=== PATIENT | male | born 1950 | race Caucasian/White ===

== ENCOUNTER 2019-03-20 11:15 | Observation (INO) | payer MEDICARE ==
--- NOTE | 2019-03-20 12:54 | ED ---
Dizziness HPI - General Chief Complaint: Dizziness Stated Complaint: heart concerns Time Seen by Provider: 03/20/19 11:49 Source: patient Mode of arrival: wheelchair Limitations: no limitations - History of Present Illness Initial Comments: Patient is 68-year-old male presenting to emergency Department with a chief complaint of lightheadedness, chest pain or shortness of breath. Patient reports he initially started to develop chest palpitations approximately 10 days ago and he saw the primary care who suggested hadn't scheduled for stress test, echo and Holter monitor. Patient reports early this morning he initially began to develop chest palpitations along with a substernal chest pressure that does not radiate anywhere. Patient denies nausea vomiting or diaphoresis. Patient also reports he developed a mild episode of numbness surrounding the mouth and his fingertips which has since resolved. Patient also reports mild lightheadedness which has resolved but no dizziness. Patient also reports that he developed shortness of breath. Patient also reports dyspnea on exertion. Patient does have asthma and seasonal ALLERGIES. Patient reports that he does have borderline hypertension but no cholesterolemia. Patient has a bicuspid aor tic valve. Patient reports he only takes aspirin and facial for his elevated triglycerides. Patient is not a smoker. Patient doesn't have any family history of cardiovascular disease. Patient took 325 of aspirin prior to ED arrival. - Related Data Home Medications Medication Instructions Recorded Confirmed Aspirin 325 mg PO DAILY 03/20/19 03/20/19 Allergies Allergy/AdvReac Type Severity Reaction Status Date / Time No Known Allergies Allergy Verified 03/20/19 12:04 Review of Systems ROS Statement: Those systems with pertinent positive or pertinent negative responses have been documented in the HPI. ROS Other: All systems not noted in ROS Statement are negative. Past Medical History Past Medical History: Asthma Additional Past Medical History / Comment(s): seasonal allergies History of Any Multi-Drug Resistant Organisms: None Reported Past Surgical History: No Surgical Hx Reported Past Psychological History: No Psychological Hx Reported Smoking Status: Never smoker Past Alcohol Use History: Daily Past Drug Use History: None Reported General Exam Limitations: no limitations General appearance: alert, in no apparent distress Head exam: Present: atraumatic, normocephalic, normal inspection Eye exam: Present: normal appearance, PERRL, EOMI Pupils: Present: normal accommodation ENT exam: Present: normal exam, normal oropharynx, mucous membranes moist, TM's normal bilaterally, normal external ear exam Neck exam: Present: normal inspection, full ROM. Absent: tenderness Respiratory exam: Present: normal lung sounds bilaterally Cardiovascular Exam: Present: regular rate, normal rhythm, normal heart sounds GI/Abdominal exam: Present: soft. Absent: tenderness Extremities exam: Present: normal inspection, full ROM Back exam: Present: normal inspection, full ROM. Absent: CVA tenderness (R), CVA tenderness (L) Neurological exam: Present: alert, oriented X3, CN II-XII intact, normal gait, reflexes normal, other (Patient neurovascularly intact). Absent: altered, abnormal gait, motor sensory deficit Psychiatric exam: Present: normal affect, normal mood Skin exam: Present: warm, intact, normal color Course Vital Signs 03/20/19 11:33 Temperature 97.7 F Pulse Rate 61 Respiratory 18 Rate Blood Pressure 147/90 O2 Sat by Pulse 97 Oximetry EKG Findings - EKG Comments: EKG Findings:: Sinus bradycardia with first-degree AV block.right axis deviation. Ventricular rate 58, CA interval 364, QRS duration 88, QT/QTc 430/422 Medical Decision Making - Medical Decision Making Patient is a 68-year-old male with history of a bicuspid aortic valve is presenting to emergency Department with a chief complaint of lightheadedness, shortness of breath and chest pain. Patient reports gradual onset of substernal chest pain without radiation nausea or vomiting. Patient also developed shortness of breath with dyspnea on exertion. Patient also reports numbness and tingling in his fingers and around the mouth which has since resolved. No focal neural deficits. No blurry Vision or headaches. Patient has a heart score 5. Patient will be admitted for observation and serial troponins. Initial troponins are negative. Rest of the laboratory results are unremarkable. Physical examination is unremarkable. EKG is indicative of left axis deviation and first-degree heart block. The admitting physician is Dr. Arce. Cardiology consulted. Case discussed with Dr. Lawrence. - Lab Data Result diagrams: 03/20/19 12:40 03/20/19 12:40 Lab Results 03/20/19 03/20/19 03/20/19 Range/Units 12:40 12:40 12:40 WBC 6.2 (3.8-10.6) k/uL RBC 5.65 (4.30-5.90) m/uL Hgb 16.9 (13.0-17.5) gm/dL Hct 49.7 (39.0-53.0) % MCV 88.0 (80.0-100.0) fL MCH 29.8 (25.0-35.0) pg MCHC 33.9 (31.0-37.0) g/dL RDW 14.6 (11.5-15.5) % Plt Count 200 (150-450) k/uL Neutrophils % 66 % Lymphocytes % 21 % Monocytes % 7 % Eosinophils % 3 % Basophils % 1 % Neutrophils # 4.1 (1.3-7.7) k/uL Lymphocytes # 1.3 (1.0-4.8) k/uL Monocytes # 0.4 (0-1.0) k/uL Eosinophils # 0.2 (0-0.7) k/uL Basophils # 0.1 (0-0.2) k/uL PT 10.7 (9.0-12.0) sec INR 1.0 (<1.2) Sodium 139 (137-145) mmol/L Potassium 4.4 (3.5-5.1) mmol/L Chloride 107 (98-107) mmol/L Carbon Dioxide 22 (22-30) mmol/L Anion Gap 10 mmol/L BUN 18 (9-20) mg/dL Creatinine 1.06 (0.66-1.25) mg/dL Est GFR (CKD-EPI)AfAm 82 (>60 ml/min/1.73 sqM) Est GFR (CKD-EPI)NonAf 71 (>60 ml/min/1.73 sqM) Glucose 95 (74-99) mg/dL Calcium 9.4 (8.4-10.2) mg/dL Total Bilirubin 0.7 (0.2-1.3) mg/dL AST 29 (17-59) U/L ALT 31 (21-72) U/L Alkaline Phosphatase 85 (38-126) U/L Troponin I (0.000-0.034) ng/mL Total Protein 7.0 (6.3-8.2) g/dL Albumin 4.1 (3.5-5.0) g/dL 03/20/19 Range/Units 12:40 WBC (3.8-10.6) k/uL RBC (4.30-5.90) m/uL Hgb (13.0-17.5) gm/dL Hct (39.0-53.0) % MCV (80.0-100.0) fL MCH (25.0-35.0) pg MCHC (31.0-37.0) g/dL RDW (11.5-15.5) % Plt Count (150-450) k/uL Neutrophils % % Lymphocytes % % Monocytes % % Eosinophils % % Basophils % % Neutrophils # (1.3-7.7) k/uL Lymphocytes # (1.0-4.8) k/uL Monocytes # (0-1.0) k/uL Eosinophils # (0-0.7) k/uL Basophils # (0-0.2) k/uL PT (9.0-12.0) sec INR (<1.2) Sodium (137-145) mmol/L Potassium (3.5-5.1) mmol/L Chloride (98-107) mmol/L Carbon Dioxide (22-30) mmol/L Anion Gap mmol/L BUN (9-20) mg/dL Creatinine (0.66-1.25) mg/dL Est GFR (CKD-EPI)AfAm (>60 ml/min/1.73 sqM) Est GFR (CKD-EPI)NonAf (>60 ml/min/1.73 sqM) Glucose (74-99) mg/dL Calcium (8.4-10.2) mg/dL Total Bilirubin (0.2-1.3) mg/dL AST (17-59) U/L ALT (21-72) U/L Alkaline Phosphatase (38-126) U/L Troponin I 0.016 (0.000-0.034) ng/mL Total Protein (6.3-8.2) g/dL Albumin (3.5-5.0) g/dL Disposition Clinical Impression: Chest pain Disposition: ADMITTED IP TO THIS [facility] Condition: Stable Instructions (If sedation given, give patient instructions): Dizziness (ED) Additional Instructions: Patient will be admitted. Is patient prescribed a controlled substance at d/c from ED?: No Referrals: Heriberto Brice MD [Primary Care Provider] - 1-2 days Time of Disposition: 14:08
[2019-03-20 13:02] LABS: Albumin 4.1 g/dL (3.5-5.0); Basophils # (A) 0.1 k/uL (0-0.2); Basophils % (A) 1 %; Calcium 9.4 mg/dL (8.4-10.2); Eosinophils # (A) 0.2 k/uL (0-0.7); Eosinophils % (A) 3 %; HCT 49.7 % (39.0-53.0); HGB 16.9 gm/dL (13.0-17.5); Lymphocytes # (A) 1.3 k/uL (1.0-4.8); Lymphocytes % (A) 21 %; MCH 29.8 pg (25.0-35.0); MCHC 33.9 g/dL (31.0-37.0); Mean Platelet Volume 7.1; Monocytes # (A) 0.4 k/uL (0-1.0); Monocytes % (A) 7 %; Neutrophils # (A) 4.1 k/uL (1.3-7.7); Neutrophils % (A) 66 %; Platelet Count 200 k/uL (150-450); Potassium 4.4 mmol/L (3.5-5.1); RBC 5.65 m/uL (4.30-5.90); RDW 14.6 % (11.5-15.5); Total Bilirubin 0.7 mg/dL (0.2-1.3); WBC 6.2 k/uL (3.8-10.6)
[2019-03-20 13:04] LABS: Prothrombin Time 10.7 sec (9.0-12.0)
--- NOTE | 2019-03-20 13:15 | XR ---
EXAMINATION TYPE: XR chest 2V DATE OF EXAM: 03/20/2019 COMPARISON: NONE HISTORY: Chest pain, dizziness, and palpitations. History of asthma. TECHNIQUE: Frontal and lateral views of the chest are obtained. FINDINGS: Lungs are hypoventilatory. There is no focal air space opacity, pleural effusion, or pneumo thorax seen. The cardiac silhouette size is within normal limits. The osseous structures are intac t. Mild multilevel degenerative changes of the spine are seen. IMPRESSION: Hypoventilatory lungs, otherwise no acute cardiopulmonary process.
[2019-03-20] MEDS ORDERED: IBUPROFEN 400 MG TAB PO PRN (14:00)
[2019-03-20] MEDS ORDERED: MORPHINE SULFATE 4 MG/ML SYRINGE IV PRN (14:00)
[2019-03-20] MEDS ORDERED: HYDROmorphone 0.5 MG/0.5 ML SYRINGE IVP PRN (14:00)
[2019-03-20] MEDS ORDERED: ONDANSETRON 4 MG/2 ML VIAL IVP PRN (14:00)
[2019-03-20] MEDS ORDERED: ACETAMINOPHEN TAB 325 MG TAB PO PRN (14:00)
[2019-03-20] MEDS ORDERED: NALOXONE 0.4 MG/ML 1 ML VIAL IV PRN (14:00)
[2019-03-20 19:26] VITALS: RESP 18
[2019-03-20 20:58] VITALS: BMI 27.1
[2019-03-21 07:10] VITALS: TEMP 97.6
--- NOTE | 2019-03-21 07:38 | CONS ---
CONSULTATION Mr. Villafuerte is a 68-year-old male with a history of bicuspid aortic valve who presented with symptoms of palpitation and chest discomfort. He is usually active physically, runs about 2 times a week and about 4 weeks ago while running, he noted that his heart rate was going quite fast up to the 160s, then subsequently slowed down. Because of that, he stopped running. He has been feeling some palpitation on and off, not always exertion in pattern. He has some chest tightness that is not always exertional in pattern either. Patient has been told 15 years or so ago that he had a bicuspid valve, but no recent workup. He denies any PND, orthopnea, or peripheral edema. He has no syncope. He felt some palpitation on and off the last few days and because of that he came into the emergency room subsequently admitted. His coronary risk factors negative for hypertension, hyperlipidemia, or diabetes. He is a nonsmoker. MEDICATION: His medication at home include aspirin. REVIEW OF SYSTEMS: RESPIRATORY SYSTEM: He has a history of asthma, but no bronchitis or recent wheezing. GI SYSTEM: No recent GI bleeding. No peptic ulcer disease. SYSTEM: No dysuria or hematuria. NERVOUS SYSTEM: No stroke or seizure. PHYSICAL EXAMINATION: He is a 68-year-old male, alert, oriented, in no apparent distress. Blood pressure running in the 150s with the heart rate in the 60s. HEAD: Normocephalic. EYES: Sclerae anicteric. NECK: Good carotid upstroke. No bruit. No jugular venous distention. LUNGS: Clear to auscultation. HEART: Regular rate and rhythm. S1, S2. No S3 with systolic ejection sound and a soft systolic murmur 1/6. No diastolic murmur. ABDOMEN: Soft, nontender. Positive bowel sounds. No organomegaly. EXTREMITIES: No edema. Intact distal pulses. LAB DATA: Lab data revealed troponin less than 0.012. BUN and creatinine of 18 and 1.06. Potassium of 4.4. Hemoglobin of 16.9. EKG revealed a sinus mechanism, normal axis, first-degree AV block, no acute changes. IMPRESSION: 1. Symptoms of chest discomfort of unclear etiology, had atypical features for ischemic heart disease, probably noncardiac. 2. Palpitation with no documented malignant arrhythmia. 3. History of bicuspid aortic valve. 4. Hypertension, not treated in the past. RECOMMENDATION: From the cardiac standpoint, I will proceed with an echocardiogram and a stress echocardiogram. If there is no evidence of abnormality then the patient will be set up to undergo an event monitor to evaluate his arrhythmia. In the meantime, will follow his blood pressure and depending on the trend, further recommendation will be made. Thank you for this consult. We will follow with you. TAQUERIA / PEDRO: [id number] /
[2019-03-21] MEDS ORDERED: ASPIRIN 81 MG PO SCH (09:00)
--- NOTE | 2019-03-21 10:28 | ECHOF ---
Referral Reason:cp MEASUREMENTS -------- HEIGHT: 182.9 cm WEIGHT: 90.7 kg BP: 144/97 RVIDd: 3.4 cm (< 3.3) IVSd: 1.0 cm (0.6 - 1.1) LVIDd: 5.3 cm (3.9 - 5.3) LVPWd: 1.0 cm (0.6 - 1.1) IVSs: 1.8 cm LVIDs: 3.3 cm LVPWs: 1.3 cm LA Diam: 3.0 cm (2.7 - 3.8) LAESV Index (A-L): 22.76 ml/m Ao Diam: 4.3 cm (2.0 - 3.7) AV Cusp: 2.4 cm (1.5 - 2.6) MV EXCURSION: 23.254 mm (> 18.000) MV EF SLOPE: 31 mm/s (70 - 150) EPSS: 0.5 cm MV E Carson: 0.64 m/s MV DecT: 197 ms MV A Carson: 0.55 m/s MV E/A Ratio: 1.17 AV maxP.39 mmHg AV meanP.81 mmHg RAP: 5.00 mmHg RVSP: 25.57 mmHg TAPSE: 15.62 mm FINDINGS -------- Sinus rhythm. This was a technically good study. The left ventricular size is normal. Left ventricular wall thickness is normal. Overall left vent ricular systolic function is normal with, an EF between 55 - 60 %. The diastolic filling pattern is normal for the age of the patient 9.19. The right ventricle is mildly enlarged. Normal LA size by volume 22+/-6 ml/m2. The right atrial size is normal. Interatrial and interventricular septum intact. The aortic valve is bicuspid. There is mild aortic valve sclerosis. Trace to mild aortic regurgit ation. Peak/mean gradient across the Aortic Valve is 10.39mmHg / 5.81mmHg. The mitral valve is normal. There is trace to mild mitral regurgitation. The tricuspid valve appears structurally normal. Mild tricuspid regurgitation present. Right vent ricular systolic pressure is normal at < 35 mmHg. Trace/mild (physiologic) pulmonic regurgitation. The aortic root is dilated measuring 4.3cm. Normal inferior vena cava with normal inspiratory collapse consistent with estimated right atrial pre ssure of 5 mmHg. There is no pericardial effusion. CONCLUSIONS -------- 1. Sinus rhythm. 2. This was a technically good study. 3. The left ventricular size is normal. 4. Left ventricular wall thickness is normal. 5. Overall left ventricular systolic function is normal with, an EF between 55 - 60 %. 6. The diastolic filling pattern is normal for the age of the patient 9.19 7. The right ventricle is mildly enlarged. 8. Normal LA size by volume 22+/-6 ml/m2. 9. The aortic valve is bicuspid. 10. There is mild aortic valve sclerosis. 11. Trace to mild aortic regurgitation. 12. Peak/mean gradient across the Aortic Valve is 10.39mmHg / 5.81mmHg. 13. The mitral valve is normal. 14. There is trace to mild mitral regurgitation. 15. Mild tricuspid regurgitation present. 16. Right ventricular systolic pressure is normal at < 35 mmHg. 17. Trace/mild (physiologic) pulmonic regurgitation. 18. The aortic root is dilated measuring 4.3cm. 19. Normal inferior vena cava with normal inspiratory collapse consistent with estimated right atrial pressure of 5 mmHg. 20. There is no pericardial effusion. HOSE WRAPPER: Sofia Gutierrez RDCS
[2019-03-21 12:12] VITALS: BP 134/90; PULSE 83
--- NOTE | 2019-03-21 12:34 | P.HPIM ---
History of Present Illness 68-year-old male presented the emergency room with complaints of palpitations lightheadedness numbness to his fingers and around his mouth, had some shortness of breath climbing stairs. Patient recently been to family physician com plaining of palpitations and was scheduled for stress echo. Patient states she was having right-sided chest pain. Patient has a history of seasonal ALLERGIES and asthma. Also noted bicuspid aortic valve with murmur Review of Systems Cardiovascular: Reports chest pain, Reports palpitations Respiratory: Reports dyspnea Neurological: Reports paresthesias Past Medical History Past Medical History: Asthma Additional Past Medical History / Comment(s): seasonal allergies History of Any Multi-Drug Resistant Organisms: None Reported Past Surgical History: No Surgical Hx Reported Past Psychological History: No Psychological Hx Reported Smoking Status: Never smoker Past Alcohol Use History: Daily Past Drug Use History: None Reported Medications and Allergies Home Medications Medication Instructions Recorded Confirmed Type Aspirin 325 mg PO DAILY 03/20/19 03/20/19 History Allergies Allergy/AdvReac Type Severity Reaction Status Date / Time No Known Allergies Allergy Verified 03/20/19 12:04 Physical Exam Vitals: Vital Signs Temp Pulse Pulse Resp BP BP Pulse Ox 03/21/19 12:11 83 18 134/90 99 03/21/19 07:57 18 03/21/19 07:23 98 03/21/19 07:00 97.6 F 64 18 144/97 97 03/21/19 03:58 98.3 F 60 18 153/79 97 03/21/19 00:00 97.7 F 59 L 18 151/90 98 03/20/19 20:25 97 03/20/19 19:57 163/100 03/20/19 19:25 98.0 F 63 18 164/102 97 03/20/19 19:23 97.9 F 66 18 142/96 98 03/20/19 16:00 98 F 12 164/102 96 03/20/19 14:30 63 16 132/89 98 03/20/19 14:00 53 L 18 131/91 96 03/20/19 13:30 54 L 18 147/89 96 03/20/19 12:30 57 L 18 139/93 94 L Intake and Output 03/20/19 03/21/19 03/21/19 22:59 06:59 14:59 Intake Total 200 480 Output Total 1 Balance 200 479 Intake: Oral 200 480 Output: Urine 1 Other: # Voids 1 Weight 90.718 kg - Constitutional General appearance: mild distress - EENT Eyes: PERRLA Ears: bilateral: normal - Neck Neck: normal ROM - Respiratory Respiratory: bilateral: CTA - Cardiovascular Rhythm: regular Abnormal Heart Sounds: systolic murmur - Gastrointestinal General gastrointestinal: soft - Integumentary Integumentary: normal - Neurologic Neurologic: CNII-XII intact - Psychiatric Psychiatric: A&O x's 3, appropriate affect, intact judgment & insight Results CBC & Chem 7: 03/20/19 12:40 03/20/19 12:40 Chest x-ray: report reviewed Assessment and Plan Plan: Assessment Atypical chest pain troponins negative 3 History of bicuspid aortic valve History of asthma with seasonal ALLERGIES Plan Continue consultation with cardiology awaiting results from stress echo
--- NOTE | 2019-03-21 12:35 | ECHOS ---
STRESS ECHOCARDIOGRAM INDICATIONS: Palpitations, vertigo, shortness of breath. MEDICATIONS: None BASELINE HEART RATE: 57 BASELINE BLOOD PRESSURE: 119/94 MAXIMUM HEART RATE: 139 MAXIMUM BLOOD PRESSURE: 185/70 85% MPHR: 128 100% MPHR: 150 METS: 9.5 MAXIMUM STAGE REACHED: 3 TOTAL EXERCISE TIME: 8:00 CLINICAL INFORMATION: Baseline rhythm is sinus mechanism rate 57, normal axis, first-degree AV block. Baseline blood pressure 119/94 mmHg. Patient exercised on Joey protocol for 8 minutes reaching peak rate 139 beats per minute which is equal to 93% of maximum predicted heart rate. Peak blood pressure 185/70 mmHg. Test was terminated secondary to fatigue. There was no chest pain. Electrocardiograph monitoring revealed rare PVCs. There was no evidence of diagnostic ischemic ST deviation. FINDINGS: Baseline echocardiogram revealed normal wall motion. At peak exercise, there was normal wall thickening and motion with no evidence of hypokinesis or dyskinesis. CONCLUSION: 1. Good exercise tolerance with normal electrocardiographic response to exercise with rare premature ventricular contractions and one four complex ventricular tachycardia early in recovery. 2. Normal stress echocardiogram with no evidence of stress-induced ischemia. MMODL / IJN: [id number] / [facility]
--- NOTE | 2019-03-22 12:03 | P.DS ---
Providers Date of admission: 03/20/19 13:46 Expected date of discharge: 03/21/19 Attending physician: Heriberto Brice Consults: 03/20/19 14:00 Consult Physician Stat Consulting Provider: Elmo Medina Consult Reason/Comments: NV rule out, chest pain. Do you want consulting provider notified?: Yes Primary care physician: Heriberto Brice Hospital Course: 68-year-old male presented to emergency room with complaints of palpitations and dizziness and right-sided chest pain. Patient was evaluated by cardiology and cleared for discharge with negative stress and echo patient does have history of bicuspid aortic valve and asthma Assessment Atypical chest pain troponins negative 3 negative stress and echo History of asthma with seasonal ALLERGIES Bicuspid aortic valve Plan Follow-up with family physician Dr. Heriberto Brice Follow-up with cardiology Patient Condition at Discharge: Stable Plan - Discharge Summary Discharge Rx Participant: No New Discharge Prescriptions: New Acetaminophen Tab [Tylenol] 650 mg PO Q6HR PRN tab PRN Reason: Mild Pain Or Fever > 100.5 Continue Aspirin 325 mg PO DAILY Discharge Medication List Aspirin 325 mg PO DAILY 03/20/19 [History] Acetaminophen Tab [Tylenol] 650 mg PO Q6HR PRN tab 03/21/19 [Rx] Follow up Appointment(s)/Referral(s): Heriberto Brice MD [Primary Care Provider] - 1-2 days Elmo Medina MD [STAFF PHYSICIAN] - 04/06/19 9:45 am (Stop at the office today after discharge and pick-up a heart monitor. Follow up appointment with Dr. Medina April 06 at 9:45am. ) Patient Instructions/Handouts: Dizziness (ED) Discharge Disposition: HOME SELF-CARE
== END 2019-03-21 14:53 | disposition home or self-care (01) ==
LOC: EC 11:15 → 1SOBS 13:46
PROVIDERS: ADMIT Family Medicine; ATTEND Family Medicine
DX: R07.89 Other chest pain (principal); Q23.1 Congenital insufficiency of aortic valve; I44.0 Atrioventricular block, first degree; I10 Essential (primary) hypertension; R20.2 Paresthesia of skin; R00.2 Palpitations; R20.0 Anesthesia of skin; J45.909 Unspecified asthma, uncomplicated; R06.09 Other forms of dyspnea; E78.1 Pure hyperglyceridemia; Z79.82 Long term (current) use of aspirin
CPT/HCPCS: 99285; 36415; 94760 ×2; 93005; 93306; 93351; 80053; 84484 ×2; 85025; 85610; 71046; G0378 ×2

== ENCOUNTER 2022-02-03 06:06 | Day surgery (SDC) | payer MEDICARE ==
[2022-02-01 15:34] VITALS: BMI 26.4
[~2022-02-03 06:06] MED LIST: LACTATED RINGERS 1,000 ML IV SCH
[2022-02-03 06:34] VITALS: TEMP 96.5
[2022-02-03] MEDS ORDERED: LIDOCAINE 1% (10MG/ML) FOR IV START INTRADERMA ONE (06:47)
[2022-02-03] MEDS ORDERED: LIDOCAINE 2% INJ 20 MG/ML (2 ML VIAL) ONE (07:07)
[2022-02-03] MEDS ORDERED: PROPOFOL 10 MG/ML 20 ML VIAL IV ONE (07:07)
--- NOTE | 2022-02-03 07:36 | P.PCN ---
Date of Procedure: 02/03/22 Procedure(s) Performed: Brief history: Patient is a pleasant 71-year-old white male scheduled for an elective upper endoscopy as well as colonoscopy as a part of evaluation of GERD/intermittent dysphagia to solids and screening for colon cancer Procedure performed: Esophagogastroduodenoscopy with biopsy and dilation Colonoscopy with snare polypectomy Preoperative diagnosis: GERD/intermittent dysphagia to solids Screening for colon cancer Anesthesia: MAC Procedure: After informed consent was obtained from the patient was brought into the endoscopy unit and IV sedation was administered by anesthesia under continuous monitoring. Initially upper endoscopy was done. The Olympus GF 160 video endoscope was inserted inserted into the mouth and esophagus intubated without any difficulty and was gradually advanced into the stomach and duodenum and carefully examined. The bulb and second part of the duodenum appeared normal. The scope was then withdrawn into the stomach adequately insufflated with air and upon careful examination the antrum had mild gastritis and biopsies were done from this area. The body, cardia and fundus appeared normal. The scope was then withdrawn into the esophagus. The GE junction was located at 40 cm to the incisors. Small hiatal hernia noted. There was a distal esophagus which are identified and this was dilated using 15-18 mm balloon in a sequential fashion for 60 seconds. Following dilation there was a superficial mucosal tear noted at the site of dilation and hence further dilation was not performed. There were no erosions or ulcerations seen. Biopsies were done from the mid and distal esophagus to rule out eosinophilic esophagitis Rest of the esophagus appeared normal. Patient tolerated the procedure well. At this time the patient continued to remain sedation. Initial digital rectal examination was normal. Olympus CF 160 video colonoscope was then inserted into the rectum and gradually advanced to the cecum without any difficulty. Careful examination was performed as the scope was gradually being withdrawn. The prep was excellent. The cecum appeared normal. Ascending colon there was a 5 mm and 7 mm polyp removed by snare polypectomy. Rest of the, ascending colon, transverse colon, descending colon, sigmoid colon and rectum appeared normal. Moderate sigmoid diverticulosis. Retroflexion was performed in the rectum and no lesions were noted. Patient tolerated the procedure well. Impression: 1. Upper endoscopy revealed distal esophageal stricture status post balloon dilation using 15-18 mm TTS balloon as described above, hiatal hernia and mild antral gastritis. 2. Colonoscopy revealed 5 mm and 7 mm ascending colon polyp status post polypectomy and scattered sigmoid diverticulosis but no evidence of colorectal neoplasia Recommendations: Findings of this examination were discussed with the patient as well as his family. He was advised to follow with the biopsy results. If the biopsies adenoma he can have a repeat colonoscopy in 5 years. In the meantime I recommend that he take Prilosec 20 mg daily and a regular basis for possible GERD causing esophageal stricture.
[2022-02-03 07:40] VITALS: PULSE 56; RESP 16
[2022-02-03 08:03] VITALS: BP 154/87
== END 2022-02-03 08:23 | disposition home or self-care (01) ==
LOC: ORWHC2ENDO 06:06
PROVIDERS: ATTEND Internal Medicine Gastroenterology
DX: Z12.11 Encounter for screening for malignant neoplasm of colon (principal); D12.2 Benign neoplasm of ascending colon; K57.30 Diverticulosis of large intestine without perforation or abscess without bleeding; K44.9 Diaphragmatic hernia without obstruction or gangrene; K22.2 Esophageal obstruction; K29.50 Unspecified chronic gastritis without bleeding; K21.00 Gastro-esophageal reflux disease with esophagitis, without bleeding; J45.909 Unspecified asthma, uncomplicated; Z79.82 Long term (current) use of aspirin; Z80.3 Family history of malignant neoplasm of breast
CPT/HCPCS: 88305; 45385; 43239; 43249; J2704; J2001

== ENCOUNTER → 2024-03-16 | Outpatient (CLI) | payer MEDICARE ==
--- NOTE | 2024-03-17 12:27 | CA ---
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 18 - 58 / 22 - 52 cm??? LA Volume Index 20.9 cm???/m??? 16 - 28 cm???/m??? M-MODE Aortic Root Diameter MM 4.5 cm LA Systolic Diameter MM 3.9 cm LA Ao Ratio MM 0.9 AV Cusp Separation MM 2.4 cm DOPPLER AV Peak Velocity 104.9 cm/s AV Peak Gradient 4.4 mmHg AV Mean Velocity 63.2 cm/s AV Mean Gradient 1.9 mmHg AV Velocity Time Integral 18.8 cm LVOT Peak Velocity 71.8 cm/s LVOT Peak Gradient 2.1 mmHg LVOT Velocity Time Integral 12.9 cm LVOT Stroke Volume 87.8 cm??? LVOT Stroke Volume Index 41.8 ml/m??? LVOT Cardiac Index 2444.1 cm???/min???m??? AV Area Cont Eq vti 4.7 cm??? AV Area Cont Eq pk 4.6 cm??? MV Area PHT 2.8 cm??? Mitral E Point Velocity 46.3 cm/s Mitral A Point Velocity 64.5 cm/s Mitral E to A Ratio 0.7 MV Deceleration Time 273.3 ms MV E' Velocity 6.0 cm/s Mitral E to MV E' Ratio 7.8 TR Peak Velocity 187.3 cm/s TR Peak Gradient 14.0 mmHg FINDINGS Left Ventricle Moderately increased left ventricular wall thickness. Left ventricular cavity size normal. Normal left ventricular systolic function with no obvious regional wall motion abnormalities. Left ventricular ejection fraction is estimated at 55-60 %. Grade 1 diastolic dysfunction. Right Ventricle Right ventricular dilatation. Right ventricular systolic pressure within normal limits. Right Atrium Normal right atrial size. Left Atrium Normal left atrial size. Mitral Valve Structurally normal mitral valve. No mitral stenosis, regurgitation or prolapse. Aortic Valve Trileaflet aortic valve. No aortic stenosis. Mild aortic regurgitation. Tricuspid Valve Structurally normal tricuspid valve. Mild tricuspid regurgitation. Pulmonic Valve Structurally normal pulmonic valve. Pericardium No pericardial effusion. Aorta Aortic dilatation. CONCLUSIONS Diagnosis aortic regurgitation Mild LVH with preserved systolic function no wall motion abnormalities Thickened aortic valve leaflets, calcific with mild aortic regurgitation no significant stenosis Previewed by: Dr. Luis Deleon MD (Electronically Signed) Final Date: 17 March 2024 12:26
== END | disposition home or self-care (01) ==
LOC: RADECHMAIN 13:25
PROVIDERS: ATTEND Family Medicine
DX: Q23.1 Congenital insufficiency of aortic valve (principal)
CPT/HCPCS: 93306